=== PATIENT | male | born 1980 | race Caucasian/White ===

== ENCOUNTER 2017-08-22 12:18 | Emergency (ER) | payer OTHER ==
[2017-08-22] MEDS ORDERED: 0.9 % SODIUM CHLORIDE 1,000 ML IV ONE (12:28)
[2017-08-22] MEDS ORDERED: ONDANSETRON HCL/PF 4 MG/ 2ML VIAL IVP ONE (12:28)
--- NOTE | 2017-08-22 12:39 | ED Physician Documentation ---
General Adult - HISTORIAN Historian: patient - HPI Stated Complaint: nausea, diarrhea Chief Complaint: General Adult Additional Information: He and son ate at same fast food place last evening. Son vomited several times during the night. Pt felt nauseated this am, and then developed diarrhea x6. At time of exam, he is nauseated. He has had intermittent pain left upper ribs ( points to axilla) for 2 months or so, hurts when palpated, and he wonders if this is related to current symptoms. - ROS CONST: denies: fever GI/: diarrhea - PAST HX Past History: other (anxiety, depression, PTSD) Allergies/Adverse Reactions: Allergies Allergy/AdvReac Type Severity Reaction Status Date / Time Penicillins Allergy Verified 08/22/17 12:34 Home Medications: Ambulatory Orders Medication Instructions Recorded Aripiprazole [Aripiprazole] 08/22/17 Clonazepam [Clonazepam] 08/22/17 Ondansetron [Zofran Odt] 4 mg PO Q6H PRN #10 tab.rapdis 08/22/17 Prazosin HCl [Minipress] 08/22/17 Zolpidem Tartrate [Zolpidem 08/22/17 Tartrate] - SOCIAL HX Smoking History: cigarettes - FAMILY HX Family History: No - VITAL SIGNS Vital Signs: Vital Signs Temp Pulse Resp BP Pulse Ox 99.1 F 106 H 16 134/89 96 08/22/17 12:18 08/22/17 12:18 08/22/17 12:18 08/22/17 12:18 08/22/17 12:18 - REVIEWED ASSESSMENTS Nursing Assessment Reviewed: Yes Vitals Reviewed: Yes Progress - Progress Progress: 1440, feels much better. ED Results Lab/Radiology - Orders Orders: ED Orders Category Date Time Status Place IV Lock 1T Care 08/22/17 12:28 Active ALCOHOL MEDICAL USE ONLY Stat Lab 08/22/17 Ordered CBC/PLATELET/DIFF Routine Lab 08/22/17 Ordered CMP Routine Lab 08/22/17 Ordered URINALYSIS Routine Lab 08/22/17 Ordered Urine drug screen [DRUG SCREEN URINE MEDICAL ONLY] Lab 08/22/17 Ordered Routine 0.9 % Sodium Chloride [Normal Saline] 1,000 ml Med 08/22/17 12:28 Active IV Q1H Ondansetron HCl/Pf [Zofran 4 mg/2 ml] Med 08/22/17 12:28 Discontinued 4 mg IVP NOW ONE General Adult Physical Exam - PHYSICAL EXAM GENERAL APPEARANCE: mild distress (anxious) EENT: eye inspection normal, ENT inspection normal, pharynx normal NECK: normal inspection, supple RESPIRATORY: breath sounds normal CVS: reg rate & rhythm, heart sounds normal, no murmur ABDOMEN: soft, normal bowel sounds, non-tender BACK: normal inspection, no CVA tenderness, other (no vertebral tenderness) SKIN: warm/dry, normal color EXTREMITIES: normal range of motion (gait and stance) NEURO: CN's nml as tested, motor nml, sensation nml Discharge Clincal Impression: Nausea Diarrhea Qualifiers: Diarrhea type: unspecified type Qualified Code(s): R19.7 - Diarrhea, unspecified Prescriptions: Ondansetron [Zofran Odt] 4 mg PO Q6H PRN #10 tab.rapdis PRN Reason: Nausea / Vomiting Referrals: Primary Doctor,No [Primary Care Provider] - 2 Days Additional Instructions: Advance your diet slowly. Stick with liquids today. Disposition: 01 HOME, SELF-CARE Decision to Admit: NO Decision Time: 14:40
[2017-08-22 12:58] LABS: MEAN CORPUSCULAR HEMOGLOBIN 30.1 pg (28.0-34.0); MEAN CORPUSCULAR VOLUME 90.1 fl (80.0-100.0)
[2017-08-22 13:12] LABS: eGFR (African) > 60; eGFR (Non-African) > 60
[2017-08-22 13:19] LABS: APPEARANCE,URINE CLEAR (CLEAR); COLOR,URINE AMBER (YELLOW); OCCULT BLOOD,URINE NEGATIVE (NEGATIVE); PH URINE 5.5 (5.0 - 8.0); UROBILINOGEN URINE 0.2 Eu (0.2-1.0)
[2017-08-22 13:20] LABS: CANNABINOIDS NON NEGATIVE ng/mL (< 50); EOSINOPHILS % 1 % (0-7); METHYLENEDIOXYMETHAMPHETAMINE NEGATIVE ng/mL (<500); MONOCYTES % 3 % (0-11); SEGMENTED NEUTROPHILS % 94 % (39-79)
[2017-08-22] MEDS ORDERED: PROMETHAZINE HCL 25 MG/ML VIAL IM ONE (13:25)
[2017-08-22 14:49] VITALS: BP 130/80
== END 2017-08-22 14:48 | disposition home or self-care (01) ==
LOC: ED 12:18
DX: R11.2 Nausea with vomiting, unspecified (principal); R19.7 Diarrhea, unspecified
CPT/HCPCS: 80053; 80320; 80377; 81002; 85025; J2405; J2550; J7030; 96365; 96372; 96375; 99283; G0480; G0481; S1016